=== PATIENT | female | born 1990 | race Caucasian/White ===

== ENCOUNTER 2016-08-07 22:16 | Emergency (ER) | payer OTHER ==
[~2016-08-07] VITALS: Ht 160 cm; Wt 83.6 kg
[~2016-08-07 22:16] MED LIST: ENDOCET 5-3251 EACH PO; MUCUS RELIEF600 MG PO; Motrin PO; ROBITUSSIN NIG118 ML PO; TESSALON PERLE100 MG PO
[2016-08-08 02:09] VITALS: BP 132/89
== END 2016-08-08 02:10 | disposition home or self-care (01) ==
LOC: EME 22:16
DX: O9A.212 Injury, poisoning and certain other consequences of external causes complicating pregnancy, second trimester (principal); S16.1XXA Strain of muscle, fascia and tendon at neck level, initial encounter; O36.0920 Maternal care for other rhesus isoimmunization, second trimester, not applicable or unspecified; Z3A.18 18 weeks gestation of pregnancy; V49.50XA Passenger injured in collision with unspecified motor vehicles in traffic accident, initial encounter
CPT/HCPCS: 86850; 86900; 86901; 99281; 99284; J2788

== ENCOUNTER 2016-08-08 12:58 | Emergency (ER) | payer OTHER ==
[~2016-08-08] VITALS: Ht 160 cm; Wt 81.1 kg
[2016-08-08 14:38] VITALS: BP 101/65
== END 2016-08-08 14:39 | disposition home or self-care (01) ==
LOC: EME 12:58
DX: O26.892 Other specified pregnancy related conditions, second trimester (principal); R10.30 Lower abdominal pain, unspecified; N89.8 Other specified noninflammatory disorders of vagina; Z3A.16 16 weeks gestation of pregnancy; V49.50XD Passenger injured in collision with unspecified motor vehicles in traffic accident, subsequent encounter
CPT/HCPCS: 99281; 99283

== ENCOUNTER → 2016-11-02 | Outpatient (CLI) | payer OTHER ==
[~2016-11-02] VITALS: Ht 162.6 cm; Wt 86.0 kg
[~2016-11-02] MED LIST changes: +PRENATAL TABLE1 EAC3 PO
[2016-11-02 19:17] VITALS: BP 108/63
== END | disposition home or self-care (01) ==
LOC: IVINF 18:55
DX: Z31.82 Encounter for Rh incompatibility status (principal); Z3A.28 28 weeks gestation of pregnancy; Z67.11 Type A blood, Rh negative
CPT/HCPCS: J2790

== ENCOUNTER 2017-01-17 02:30 | Inpatient (IN) | payer OTHER ==
[~2017-01-17] VITALS: Ht 162.6 cm; Wt 90.9 kg
[2017-01-17] VITALS (11 sets, daily range): BP systolic 108–124; BP diastolic 55–79
[2017-01-17] MEDS ORDERED: IBUPROFEN800 MG PO (04:37)
[2017-01-17 07:42] LABS: EOSINOPHIL (%) 0.1 % (0-5); HEMATOCRIT 33.9 % (36.0-46.0); IMMATURE GRANULOCYTE (%) 0.5 % (0.0-0.7); IMMATURE GRANULOCYTE COUNT 0.1 K/uL; INSTRUMENT ABS NEUTROPHIL CT 14.1 K/uL; LYMPHOCYTE COUNT 1.7 K/uL (1.0-2.8); MCH 30.1 PG (29.0-34.0); MCHC 34.2 G/DL (30.0-36.0); MCV 88.1 FL (83-99); MEAN PLAT.VOLUME 10.1 uM^3 (9.5-12.4); MONOCYTE (%) 5.9 % (3-12); NEUTROPHIL (%) 83.3 % (45-76); NEUTROPHIL COUNT 14.1 K/uL (1.8-6.4); PLATELET COUNT 172 K/uL (156-360); RBC DIS.WIDTH-CV 13.1 % (11.8-14.6); RBC DIS.WIDTH-SD 41.8 % (39-53); RED BLOOD COUNT 3.85 M/uL (3.80-5.20); WHITE BLOOD COUNT 16.9 K/uL (4.1-10.2)
[2017-01-18 07:17] VITALS: BP 110/72
[2017-01-18 14:55] VITALS: BP 122/71
[2017-01-18 22:25] VITALS: BP 112/65
== END 2017-01-19 15:40 | disposition home or self-care (01) | DRG 775 ==
LOC: LDRP-OP 02:30 → 2WEST 02:31
PROVIDERS: Midwife
DX: O70.0 First degree perineal laceration during delivery (principal); Z3A.39 39 weeks gestation of pregnancy; Z37.0 Single live birth
CPT/HCPCS: 85025; J0595; J7120